=== PATIENT | female | born 1985 | race Caucasian/White ===

== ENCOUNTER → 2021-04-10 | Outpatient (CLI) | payer OTHER ==
--- NOTE | 2021-04-10 16:14 | RAD ---
XR FOOT_LEFT 3 VIEWS Clinical indications: Reason: LEFT FOOT PAIN / Spl. Instructions: / History: Findings: No acute fracture or dislocation or osteolytic process is evident. IMPRESSION: No acute osseous abnormality is evident. Small plantar spur of the calcaneus is seen. No periosteal reaction is seen. Note-the views were initially labeled right but I checked with the technologist, Domitila and she is said that and she said that the left foot was x-rayed. She will change this labeling. Electronically signed by: Eze Hardy MD (04/10/2021 4:12 PM) [id number]
== END ==
LOC: PMG 14:46
PROVIDERS: ATTEND Nurse Practitioner Family
DX: M77.32 Calcaneal spur, left foot (principal)
CPT/HCPCS: 73630